=== PATIENT | male | born 2000 | race Caucasian/White ===

== ENCOUNTER 2023-07-02 15:14 | Emergency (ER) | payer OTHER, SELFPAY ==
[2023-07-02 15:19] VITALS: BP 137/73
[2023-07-02 15:30] VITALS: BMI 31.9
--- NOTE | 2023-07-02 16:35 | ED.GENMED ---
History of Present Illness
General
Chief Complaint: Eye Problems
Source: family
Exam Limitations: other (Autism)
Time Seen by Provider: 07/02/23 15:46
Travel History
Have you had any contact with someone who has COVID-19?: No
Do you have any symptoms of coronavirus? Fever > 100 degrees, chills, cough, shortness of breath, sore throat, loss of taste or smell, muscle aches, or headache?: No
History of Present Illness
History of Present Illness:
23-year-old male with a history of autism and's with papilledema diagnosed by the travel writer. Patient is at his baseline has no medical complaints this was a totally routine visit for the family. No headaches no vomiting no change in mental
status no fever not reporting any visual issues or problems
Past History
Past History
ED Past Medical History: Other (Autism)
Social History
Tobacco: Non-smoker
Personal: Single
Living: with family
Review of Systems
Review of Systems
All Other Systems: Not applicable
Phy Exam
Physical Exam
Physical Exam:
GENERAL: Alert and oriented in no apparent distress
EYE: Orbits normal. Pupils dilated secondary to optometry exam. Difficult for me to evaluate but appears to be possibly mild papilledema
NECK: Supple,
CARDIAC: Regular rate and rhythm without any obvious murmurs.
LUNGS: Clear breath sounds,normal
ABDOMEN: Soft, without focal tenderness or distention
NEUROLOGICAL: Alert , grossly non-focal. Extraocular muscles intact. [employer] normal.
SKIN: Warm and dry, no rash or lesion, no discoloration, skin intact.
MUSCULOSKELETAL: No edema,no deformity.Good color
PSYCH: Normal and appropriate interaction. Autistic but cooperative
Course
Vital Signs
Initial and Last Documented VS:
Initial Vital Signs
Temp Pulse Resp BP Pulse Ox
97.6 F 81 20 137/73 97
07/02/23 15:19 07/02/23 15:19 07/02/23 15:19 07/02/23 15:19 07/02/23 15:19
Last Documented Vital Signs
Temp Pulse Resp BP Pulse Ox
97.6 F 81 20 137/73 97
07/02/23 15:19 07/02/23 15:19 07/02/23 15:19 07/02/23 15:19 07/02/23 15:19
*Pulse Oximetry
Patient hypoxic: no
*Critical Care Note
Total Time (30-74mins, 75-104mins- exclusive of procedures): Not Applicable
Update Note
Update Note:
Mom is describing similar symptoms from 10 or 12 years ago at [facility] when he saw a neuro-assembler product. He had an MRI done at that time for evaluation of his autism they noted swelling behind his eyes did a lumbar puncture and was followed by a
neuro-ophthalmology for a year or so. Mom was told that the eyes never changed but were stable and that that was just to he was.
Discussed with [facility] neuro. They were able to pull up his records. He has a history of pseudopapilledema diagnosed 5 years ago. Clinically he is stable he is asymptomatic no reason for further workup at this time.
ED Attending Note
-
Portions of this chart may have been created with voice recognition software.� Occasional wrong word or��sound alike� substitutions may have occurred due to the inherent limitations of voice recognition software.
Discharge Plan
Departure
Patient Disposition: Home (Routine Discharge)
Date of Disposition: 07/02/23
Time of Disposition: 16:54
Patient with high blood pressure during this ER visit?: Yes
Discharge Problem:
Papilledema by ophthalmic exam, History of pseudopapilledema
Instructions: BLOOD PRESSURE
Prescriptions:
No Action
cetirizine 10 MG tablet
10 mg PO DAILY
sertraline 50 MG tablet
50 mg PO DAILY
Referrals:
Ratna Hanley, [Family Provider] -
Activity Restrictions/Additional Instructions:
Call General acute hospital for follow-up
As discussed try to get the records from [facility]
Return with any concerning symptoms including unusual headache vomiting lethargy irritability visual issues or any other concerning symptoms
Interventions
Interventions:
*Risk Screen - Suicide Last Done: 07/02/23 15:30
*General Assessment Last Done: 07/02/23 15:30
*Neglect/Abuse Screening Last Done: 07/02/23 15:30
ED- Fall Risk Assessment Last Done: 07/02/23 15:30
*ED COVID-19 Vaccine History Last Done: 07/02/23 15:30
== END 2023-07-02 17:01 | disposition home or self-care (01) ==
LOC: EMR 15:14
PROVIDERS: EMERGENCY PHYSICIAN Emergency Medicine; FAMILY PHYSICIAN Family Medicine
DX: H47.10 Unspecified papilledema (principal); H47.339 Pseudopapilledema of optic disc, unspecified eye; F84.0 Autistic disorder
CPT/HCPCS: 99282